=== PATIENT | male | born 1970 | race Caucasian/White ===

== ENCOUNTER 2022-06-18 06:01 | Day surgery (SDC) | payer OTHER ==
[~2022-06-18 06:01] MED LIST: Lactated Ringers 1,000 ML IV SCH
[2022-06-18] MEDS ORDERED: DIPRIVAN 200 MG/20 ML IV ONE (07:24)
[2022-06-18] MEDS ORDERED: Versed 2 MG/2 ML Injection ONE (07:24)
[2022-06-18 08:34] VITALS: O2SAT 97
[2022-06-18 08:49] VITALS: BP 128/82; PULSE 73
--- NOTE | 2022-06-18 14:34 | OP ---
SURGERY DATE/TIME: 06/18/2022 0734 PREOPERATIVE DIAGNOSIS: Screening colonoscopy. POSTOPERATIVE DIAGNOSIS: Ascending colon polyp x1. PROCEDURE: Colonoscopy. SURGEON: Tolu Monroy M.D. ANESTHESIA: MAC by Alex Holcomb CRNA. ESTIMATED BLOOD LOSS: Minimal. SPECIMENS: There was a hot forceps polypectomy to the ascending colon polyp x1. DESCRIPTION OF PROCEDURE: After informed written consent was obtained, the patient was taken to the endoscopy suite. He was placed in left lateral decubitus position. Anesthesia was titrated to desired level of consciousness. Digital rectal exam showed normal sphincter tone and no internal lesions. The scope was inserted into the rectum and sequentially the entire colonic mucosa was traversed. The level of cecum was reached and verified with direct visualization of the ileocecal valve. Upon withdrawal careful mucosal inspection revealed a very small sessile polyp in the ascending colon grasped with forceps, cauterized and removed in its entirety with minimal blood loss and was hemostatic following removal. Upon further withdrawal there were no other lesions encountered. Prep was noted to be good. Prior to withdrawal retroflexion was performed and showed no internal lesions. The scope was removed. The patient was transferred to the recovery room in good condition.
== END 2022-06-18 08:52 | disposition home or self-care (01) ==
LOC: SDC 06:01
PROVIDERS: ATTEND Family Medicine
DX: Z12.11 Encounter for screening for malignant neoplasm of colon (principal); D12.2 Benign neoplasm of ascending colon
CPT/HCPCS: J2250; J2704